=== PATIENT | female | born 1995 | race Native Hawaiian/Other Pacific Islander ===

== ENCOUNTER 2020-10-17 18:45 | Emergency (ER) | payer OTHER ==
[~2020-10-17] VITALS: Ht 162.6 cm; Wt 151.5 kg
[2020-10-17 21:15] VITALS: BP 182/85; TEMP 98.3
== END 2020-10-17 21:15 | disposition home or self-care (01) ==
LOC: ED 18:58
DX: Z20.828 Contact with and (suspected) exposure to other viral communicable diseases (principal)
CPT/HCPCS: 87635; 99282; U0003